=== PATIENT | female | born 1970 | race Caucasian/White ===

== ENCOUNTER → 2017-01-21 | Outpatient (CLI) | payer OTHER ==
[~2017-01-21] MED LIST: ALDACTONE DPS25 MG PO; ARMOUR THYROID120 MG PO; ARMOUR THYROID180 MG PO; ASA CHILDREN'S81 MG PO; ASPIR 8181 MG PO; ATARAX-DPS25 MG PO; ATIVAN-DPS0.5 MG PO; ATIVAN-DPS1 MG PO; BENADRYL-DPS25 MG PO; BREO ELLIP1 PUFF/DOS IH; BRILINTA90 MG PO; BROVANA15 MCG/2 M PO; BUSPAR DPS10 MG PO; CARAFATE DPS1 GM PO; CEPACOL SORE T1 EACH PO; COLACE-DPS100 MG PO; CYMBALTA60 MG PO; DAILY MULTIPLE1 EAC1 PO; DELTASONE DPS20 MG PO; DESYREL DPS100 MG PO; DILAUDID2 MG PO; DULERA 100/58.8 GM IH; DUONEB DPS3 ML IH; EXALGO8 MG PO; GABAPENTIN600 MG PO; HABITROL DPS7 MG TD; IMDUR DPS60 MG PO; IRON325 MG PO; KLONOPIN DPS0.5 MG PO; LASIX DPS40 MG PO; LIDODERM PATC1 PATCH TD; LIPITOR DPS20 MG PO; LOPRESSOR DPS50 MG PO; MAALOX DPS30 ML PO; MIRALAX PACKET17 GM PO; MOTRIN-DPS400 MG PO; MYCELEX TROCHE10 MG PO; MYCOSTATIN PWD15 GM TP; NEURONTIN DPS300 MG PO; NITROSTAT0.4 MG SL; NORCO 7.5-3251 EACH PO; NORVASC5 MG PO; OCEAN NASAL MIS45 ML NS; OXY IR DPS5 MG PO; PERCOCET 7.5-31 EACH PO; PHENERGAN DPS25 MG PO; PHENERGAN W/COD30 ML PO; PROBIOTIC1 EAC1 PO; PROTONIX40 MG PO; PROZAC40 MG PO; PULMICORT0.5 MG/2 M IH; REGLAN DPS5 MG PO; REGLAN-DPS10 MG PO; SOMA-DPS350 MG PO; SYNTHROID175 MCG PO; TESSALON PERLE100 M1 PO; TYLENOL DP650 MG/20. PO; TYLENOL DPS325 MG PO; VANTIN DPS200 MG PO; VITAMIN B-12500 MCG PO; VITAMIN D1000 UNI1 PO; ZAROXOLYN5 MG PO; ZESTRIL DPS10 MG PO; ZITHROMAX500 MG PO
== END | disposition home or self-care (01) ==
LOC: RAD.S 10:30
DX: M54.5 Low back pain (principal); M79.606 Pain in leg, unspecified; Z98.890 Other specified postprocedural states; M17.11 Unilateral primary osteoarthritis, right knee; M47.816 Spondylosis without myelopathy or radiculopathy, lumbar region

== ENCOUNTER 2017-02-10 11:19 | Emergency (ER) | payer OTHER ==
[~2017-02-10 11:19] MED LIST changes: -VITAMIN B-12500 MCG PO
--- NOTE | 2017-02-15 07:21 | ER ---
ADMIT: 02/10/2017 RM/LOC: ER [facility] MR#: [id number] [address] [address] JENN GRACE [address] [place] [address] Emergency Room Report SEX: F AGE: 46 : 1970 DATE: 02/10/2017 TIME: 1119 hours. Please refer to my T-sheet for complete H and P. Briefly, the patient is a 46-year-old that comes in with chest discomfort, leg swelling, abdominal distention. She has a longstanding history of a plethora of medical problems. She continues to smoke a pack and half a day. She is very inactive. She also has anxiety, high blood pressure, high cholesterol, low thyroid. PHYSICAL EXAMINATION: VITAL SIGNS: Blood pressure 147/77, pulse 100, respirations 18, temp 98.2, sat 97%. GENERAL: She is no acute distress. HEENT: Grossly normal. LUNGS: Clear. HEART: Regular. ABDOMEN: Has a fullness to it consistent with a little extra edema. EXTREMITIES: Lower extremities, 3+ edema. No palpable cords. SKIN: No rash. NEURO: She is alert, oriented, and nonfocal. EMERGENCY DEPARTMENT COURSE: We gave her 80 of Lasix IV. Her EKG was sinus rhythm, rate 83, no changes. Chest x-ray, really no acute disease. CBC was normal. Chemistries were normal. Potassium was 3.6. Liver functions were normal. Troponin was negative. UA was normal. The Lasix did diurese her. She did not feel much better, but she is very stable. I talked to Dr. Garcia, her primary. He would gladly follow her up as an outpatient. ASSESSMENT: 1. Chest pain, very atypical. 2. Congestive heart failure. 3. Nicotine abuse. 4. Obesity. PLAN: Continue current medications. Increase her Lasix to 80 a day. Increase her potassium. Follow up with [facility] as outpatient and return if worse. Wale Salinas MD/ salome JOB #: [id number] CC: Wale Salinas MD, Attending Physician UNKNOWN, Family Physician
[2017-06-09] MEDS ORDERED: VITAMIN B-12500 MCG PO (15:01)
== END 2017-02-10 13:08 | disposition home or self-care (01) ==
LOC: ER 11:19
DX: I50.9 Heart failure, unspecified (principal); R07.89 Other chest pain; E66.9 Obesity, unspecified; F17.210 Nicotine dependence, cigarettes, uncomplicated; I10 Essential (primary) hypertension; E78.5 Hyperlipidemia, unspecified; Z79.82 Long term (current) use of aspirin; Z79.899 Other long term (current) drug therapy

== ENCOUNTER → 2017-02-16 | Outpatient (CLI) | payer OTHER ==
[~2017-02-16] MED LIST changes: +VITAMIN B-12500 MCG PO
== END | disposition home or self-care (01) ==
LOC: RAD.S 13:00
PROC: 3E0S33Z Introduction of Anti-inflammatory into Epidural Space, Percutaneous Approach (ICD-10-PCS; principal; 2017-02-16)
PROC: 3E0S3CZ (ICD-10-PCS; principal; 2017-02-16)
DX: M54.5 Low back pain (principal); M54.16 Radiculopathy, lumbar region

== ENCOUNTER 2017-03-13 15:21 | Emergency (ER) | payer OTHER ==
[~2017-03-13 15:21] MED LIST changes: -VITAMIN B-12500 MCG PO
--- NOTE | 2017-03-17 16:07 | ER ---
ADMIT: 03/13/2017 RM/LOC: ER [facility] MR#: [id number] [address] [address] JENN GRACE [address] [place] [address] Emergency Room Report SEX: F AGE: 46 : 1970 DATE: 03/13/2017 A 46-year-old white female coming in short of breath, cough. She continues to smoke. She has COPD. CBC, chemistry, chest x-ray is negative. We gave 20 of Decadron Medrol Dosepak starting tomorrow. She is on erythromycin. She will continue and she should use her nebulizers every 4-6 hours while awake. CONDITION ON DISCHARGE: Good. Christoph Sandoval MD/ salome JOB #: [id number] CC: Christoph Sandoval MD, Attending Physician Abhijeet Garcia MD, Family Physician
[2017-06-09] MEDS ORDERED: VITAMIN B-12500 MCG PO (15:01)
== END 2017-03-13 18:30 | disposition home or self-care (01) ==
LOC: ER 15:21
DX: J44.0 Chronic obstructive pulmonary disease with (acute) lower respiratory infection (principal); J20.9 Acute bronchitis, unspecified; J44.1 Chronic obstructive pulmonary disease with (acute) exacerbation; F17.210 Nicotine dependence, cigarettes, uncomplicated; Z79.899 Other long term (current) drug therapy

== ENCOUNTER 2017-03-24 17:14 | Emergency (ER) | payer OTHER ==
--- NOTE | 2017-03-25 19:08 | ER ---
ADMIT: 03/24/2017 RM/LOC: ER [facility] MR#: [id number] [address] [address] JENN GRACE [address] [place] [address] Emergency Room Report SEX: F AGE: 46 : 1970 DATE: 03/24/2017 CHIEF COMPLAINT: Chief complaint today is chest pain. HISTORY OF PRESENT ILLNESS: This is a 46-year-old white female, who presents with chest discomfort 30 minutes prior to arrival. States she was in the car and way back from [place] where she was seeing orthopedic surgeon when she had acute onset of left-sided chest pain radiating down the left arm. It was associated with some diaphoresis. She did phone her medical assistant secretary who recommended nitroglycerin and to be seen in the ED. She states her nitroglycerin did not relieve her pain. Rates the pain as an 8/10, sharp in nature. PAST MEDICAL HISTORY: Hypertension, thyroid disorder, COPD, hyperlipidemia, status post stent 18 months ago. She does smoke a pack per day. COURSE IN THE EMERGENCY ROOM: GENERAL: The patient was seen and examined. She is anxious, in mild distress. VITAL SIGNS: Blood pressure 145/79, heart rate 90, respirations 12, temp 97.9, and 93% on room air. NECK: Soft and supple. LUNGS: She is in no respiratory distress. No wheezes, rhonchi, or rales. HEART: Regular rate. No murmurs, gallops, or rubs. She does have tenderness to the anterior chest. ABDOMEN: Nontender. SKIN: Normal. No rash. Warm and dry. She does complain of left lower leg calf tenderness and bilateral pedal edema, chronic in nature. Swelling is no worse than it typically is. She is alert and oriented x4. Motor is normal. She is however anxious. She is currently on multiple pain medications as well as Ativan and Klonopin. She was given 2 of Dilaudid, 4 of Zofran IV. She states this did improve her pain. She is much more comfortable. She is able to sit up in bed, drink diet Pepsi. She was also given a breathing treatment. I did get labs on her. It shows white count , hemoglobin 12.8, hematocrit 39.2, and platelets 295. EKG, rate of 82, no ST-T or Q wave abnormalities. Sodium 139, potassium 3.4, CO2 of 29, glucose 109, creatinine 0.8. Liver enzymes normal. CK 182 and MB 1.5. Troponin less than 0.015. ADMIT: 03/24/2017 RM/LOC: [facility] MR#: [id number] [address] [address] JENN GRACE [address] [place] [address] Emergency Room Report SEX: F AGE: 46 : 1970 IMPRESSION: 1. Chest pain. 2. Chronic obstructive pulmonary disease. 3. Anxiety. DISPOSITION: The patient was discharged home to resume her home medications as prescribed. To rest, push fluids as tolerated. Follow up with Dr. Garcia sometime this week. Certainly return with any worsening signs or symptoms. Discharged in stable condition. REKHA Holland / Evgeny Mims MD / modl JOB #: [id number] CC: Christoph Sandoval MD, Attending Physician Abhijeet Garcia MD, Family Physician Florentin Vyas MD
[2017-06-09] MEDS ORDERED: VITAMIN B-12500 MCG PO (15:01)
== END 2017-03-24 20:05 | disposition home or self-care (01) ==
LOC: ER 17:14
DX: R07.9 Chest pain, unspecified (principal); J44.9 Chronic obstructive pulmonary disease, unspecified; F41.9 Anxiety disorder, unspecified; R60.0 Localized edema; I10 Essential (primary) hypertension; E78.5 Hyperlipidemia, unspecified; E07.9 Disorder of thyroid, unspecified; F17.210 Nicotine dependence, cigarettes, uncomplicated; Z95.5 Presence of coronary angioplasty implant and graft; Z90.49 Acquired absence of other specified parts of digestive tract; Z88.6 Allergy status to analgesic agent; Z88.8 Allergy status to other drugs, medicaments and biological substances; Z79.82 Long term (current) use of aspirin; Z79.51 Long term (current) use of inhaled steroids; Z79.899 Other long term (current) drug therapy

== ENCOUNTER → 2017-04-21 | Outpatient (CLI) | payer OTHER ==
[~2017-04-21] MED LIST changes: +VITAMIN B-12500 MCG PO
== END | disposition home or self-care (01) ==
LOC: RAD.S 04-17 09:00
DX: M54.5 Low back pain (principal)

== ENCOUNTER → 2017-04-24 | Outpatient (CLI) | payer OTHER ==
--- NOTE | ~2017-04-24 | CST ---
Cardiac Perfusion Imaging Demographics Patient Name SANJAY Al Gender Female Patient Number [id number] Race Visit Number [id number] Ethnicity Corporate ID Room Number Accession Number [id number] Height 63 inches Date of 1970 Weight 325 pounds Age 46 year(s) BSA 2.38 m Referring Physician Jovani MONTES BMI 57.57 kg/m Interpreting Physician [facility] [place] Date of study 04/24/2017 King Florentin Pepe MD Supervising MD/MLP King Florentin GARCIA Technologist Sky Quiroz Ordering Physician [facility] Stress Felix [place] certified dialysis technician Stress ECG Reading [facility] Nurse Sarah Mata Physician King Florentin Knight The procedure was explained in detail to the patient. Risks, complications and alternative treatments were reviewed. Written consent was obtained. Medications Reviewed with Patient prior to Procedure. Procedure Procedure Type: Nuclear Stress Test:Pharmacological, Lexiscan Procedure Start time: 04/24/2017 08:00 Indications: Chest discomfort, History of CAD, pre-op and Hyperlipidemia. Risk Factors The patient risk factors include:prior PCI;obesity, physical activity, hypertension, family history of premature CAD, chronic lung disease and dyslipidemia. Conclusions Summary Perfusion Images: The overall quality of the study is good. Left ventricular cavity is noted to be normal on the stress and rest studies. There is no evidence of abnormal lung activity. The right ventricle is not visualized and cannot be assessed. Stress SPECT images and Rest SPECT images demonstrate homogenous tracer distribution throughout the myocardium except for a decrease in uptake in the area involving the inferior wall consistent with diaphragmatic attenuation. Gated SPECT imaging reveals normal myocardial thickening and wall motion. The left ventricular ejection fraction was calculated to be 72%. Impression ECG portion of stress test is clinically negative for ischemia by diagnostic criteria. Myocardial perfusion imaging is normal. The inferior wall matched defect is consistent with diaphragm attenuation. Overall left ventricular systolic function was normal without regional wall motion abnormalities. There are no previous studies for comparison. . Stress Protocols Resting ECG Normal sinus rhythm. Resting HR:79 bpm Resting BP:132/80 mmHg Stress Protocol:Pharmacologic Predicted HR: 176 bpm Test duration: 06:00 min Reason for termination:Infusion complete ECG Findings Normal sinus rhythm. Symptoms C/O chest pain and nausea Complications Procedure complication: None. Stress Interpretation Appropriate hemodynamic response to Lexiscan. No significant ST-T wave changes with Lexiscan. ECG portion is negative for ischemia by diagnostic criteria. Imaging Results Summed scores - Summed stress score: 9 - Summed rest score: 5 - Summed difference score: 4 Stress ejection Ejection fraction:71 % EDV :104 ml ESV :30 ml Stroke volume :74 ml LV mass :137 gr Imaging Protocols Rest Stress Isotope:Tc99m Myoview IV Isotope: Tc99m Myoview IV Isotope dose:10.2 mCi Isotope dose:30.2 mCi Date:04/24/2017 07:15 Date:04/24/2017 08:10 Technique: SPECT Technique: Gated Supine SPECT Supine Scan Time:30 minutes post injection Scan Time:45-60 minutes post injection Procedure Medications - Regadenoson (Lexiscan) 0.4 mg IV over 10-15 sec. I.V. 0.4 mg. Medications administered per verbal order and read back to physician prior to administration. Medical History Admission Data Admission date: 04/24/2017 Admission Time: 06:56 Hospital Status: Outpatient. Signatures
--- NOTE | ~2017-04-24 | ECH ---
Transthoracic Echocardiography Report (TTE) Demographics Patient Name JENN GRACE Date of Study 04/24/2017 Patient Number [id number] Visit Number [id number] Date of 1970 Room Number Accession Number [id number] Gender Female Age 46 year(s) Referring Radha Al Associate Director Regulatory Affairs Niharika Martinez [facility] Physician MD Jovani MONTES Physician Interpreting Radha Painter Podiatry Professor Physician Supervising Ordering Physician Jovani MONTES MD/MLP Nurse Stress Machine Binder Stripper Conclusions Summary Technically fair exam. The estimated left ventricular ejection fraction is 60-65%. No significant valvular abnormalities. Procedure Type of Study TTE procedure:Echo Complete SF. Procedure Date Date: 04/24/2017 Start: 08:19 AM Technical Quality: Fair due to body habitus. Indications:Chest pain, pre surgical clearance and Coronary artery disease. Appropriate Use Criteria: 9 Height: 63 inches Weight: 325 pounds BSA: 2.38 m Rhythm: Within normal limits HR: 81 bpm BP: 118/72 mmHg Allergies - Antibiotics. - Other:(Zocor). - Morphine. M-Mode/2D Measurements LV Diastolic Dimension: 5 cm LV Systolic Dimension: 3.12 cm LV Septum Diastolic: 0.98 cm LV PW Diastolic: 0.92 cm AO Root Dimension: 2.53 cm Cardiac Output: 5.37 l/min LA Dimension: 4.05 cm Cardiac Index: 2.26 l/min*m RV Diastolic Dimension: 2.94 cm LA volume index: 22 ml/m LVOT: 1.92 cm LVOT VTI: 22.93 cm RV Base: 3.5 cm LV Stroke volume: 66.36 ml RV Mid: 2.1 cm LV Stroke volume index: 27.88 ml/m RV Length: 6.5 cm TAPSE: 1.8 cm TDI-S': 10 cm/s Doppler Measurements AV Peak Velocity: 1.5 m/s MV Peak E-Wave: 1.06 m/s AV Peak Gradient: 9 mmHg MV Peak A-Wave: 0.61 m/s AV Mean Gradient: 5.07 mmHg MV E/A Ratio: 1.74 LVOT Peak Velocity: 1.1 m/s MV P1/2t: 50.5 msec AV Area (Continuity):2.21 cm MV Deceleration Time: 178.2 msec MV Area (PHT): 4.36 cm PV Peak Velocity: 1.11 m/s E' Septal Velocity: 0.13 m/s PV Peak Gradient: 4.91 mmHg RA Area: 13.03 cm Findings Left Ventricle The left ventricle is normal in size . Diastolic assessment reveals normal relaxation. Right Ventricle Normal right ventricle structure and function. Left Atrium Normal left atrial size. Right Atrium Normal right atrial size. Mitral Valve Mild thickening of the mitral valve leaflets. Aortic Valve The aortic valve is mildly sclerotic. Tricuspid Valve Normal tricuspid valve structure and function. Pulmonic Valve The pulmonic valve is not well visualized. Pericardial Effusion No evidence of pericardial effusion. Miscellaneous Visualized portions of the aortic root and ascending aorta appear normal in size. Pleural Effusion No evidence of pleural effusion. Signature
== END | disposition home or self-care (01) ==
LOC: CARD 04-15 11:53
DX: Z01.818 Encounter for other preprocedural examination (principal); R07.9 Chest pain, unspecified

== ENCOUNTER 2017-05-06 11:44 | Emergency (ER) | payer OTHER ==
[~2017-05-06 11:44] MED LIST changes: -VITAMIN B-12500 MCG PO
--- NOTE | 2017-05-10 08:56 | ER ---
ADMIT: 05/06/2017 RM/LOC: ER [facility] MR#: [id number] [address] [address] SANJAY JENN Servando [address] [place] [address] Emergency Room Report SEX: F AGE: 46 : 1970 DATE: 05/06/2017 TIME: 1144 hours. Please refer to my T-sheet for complete H and P. Briefly, the patient is a 46-year-old, came in by ambulance for chest pain, left sided, acute onset, severe, 07/26. She is actually known well to the ER for multiple visits. She does have a history of cardiac disease though. When she arrives, nitroglycerin was given, aspirin. She has had no help. PHYSICAL EXAMINATION: VITAL SIGNS: Stable. HEENT: Grossly normal. LUNGS: Clear. HEART: Regular. ABDOMEN: Soft. EXTREMITIES: 2+ edema. EMERGENCY DEPARTMENT COURSE: EKG was sinus rhythm, rate 69, no changes. Chest x-ray negative. CBC normal. Chemistries normal except potassium 3.6. Troponin negative. She was given Dilaudid, GI cocktail, Zofran, and her pain was improved. I am going to allow her discharge. ASSESSMENT: 1. Atypical chest pain. 2. Nicotine abuse. PLAN: Stop smoking. Continue medications. Follow up with Dr. Garcia. Wale Salinas MD/ salome JOB #: [id number] CC: Wale Salinas MD, Attending Physician Abhijeet Garcia MD, Family Physician
[2017-06-09] MEDS ORDERED: VITAMIN B-12500 MCG PO (15:01)
== END 2017-05-06 15:30 | disposition home or self-care (01) ==
LOC: ER 11:44
DX: R07.89 Other chest pain (principal); F17.210 Nicotine dependence, cigarettes, uncomplicated; F41.9 Anxiety disorder, unspecified; K21.9 Gastro-esophageal reflux disease without esophagitis; E07.9 Disorder of thyroid, unspecified; I11.0 Hypertensive heart disease with heart failure; I50.9 Heart failure, unspecified; Z88.5 Allergy status to narcotic agent; Z88.1 Allergy status to other antibiotic agents; Z88.8 Allergy status to other drugs, medicaments and biological substances; Z79.82 Long term (current) use of aspirin; Z79.899 Other long term (current) drug therapy; Z79.51 Long term (current) use of inhaled steroids